=== PATIENT | male | born 1960 | race Caucasian/White ===

== ENCOUNTER 2019-12-04 12:36 | Emergency (ER) | payer OTHER ==
[2019-12-04 12:52] VITALS: BP 151/97; PULSE 88; TEMP 97.8; BMI 25.7
--- NOTE | 2019-12-04 13:05 | PDOC ---
History of Present Illness - General Chief Complaint: Blood Pressure Problem Stated Complaint: HYPERTENSION/HEADACHE Time Seen by Provider: 12/04/19 13:04 History Source: Patient - History of Present Illness Initial Comments: 12/04/19 13:21 Mr. Arias is a 58 y/o man w/hx T1DM, HTN, p/w headache that began this morning. He reports waking up and feeling his normal self, but beginning to feel that his blood sugar was dropping over the course of the morning. He reports checking his blood sugar and after finding it was 54, drinking juice and eating a snack. He checked his blood sugar after eating and noted it to be 110, at which point he administered 22u basiglar. His headache began shortly afterwards, 4/10 temporal, no radiation, no visual changes, nausea, vomiting, weakness, chest pain, shortness of breath noted. He did not take any medication to control the pain prior to arrival. He reports recently starting a new job with significant changes to his daily schedule. He reports eating less than usual, including last night where he reports eating a small amount of soup and nothing else before administering 28u basiglar insulin. He denies any fevers, chills, nausea, vomiting, confusion, weakness, cough. He takes 22u of basiglar in the morning, and 28u basiglar at night, no recent changes to his insulin doses. Past History - Past Medical History Allergies/Adverse Reactions: Allergies Allergy/AdvReac Type Severity Reaction Status Date / Time No Known Allergies Allergy Verified 12/04/19 12:45 COPD: No Diabetes: Yes (IDDM) HTN: Yes - Psycho Social/Smoking Cessation Hx Smoking History: Never smoked Review of Systems - Review of Systems Able to Perform ROS?: Yes Comments:: 12/04/19 22:32 ROS: GENERAL/CONSTITUTIONAL: No fever or chills. No weakness. HEAD, EYES, EARS, NOSE AND THROAT: No change in vision. No ear pain or discharge. No sore throat. CARDIOVASCULAR: No chest pain or shortness of breath RESPIRATORY: No cough, wheezing, or hemoptysis. GASTROINTESTINAL: No nausea, vomiting, diarrhea or constipation. GENITOURINARY: No dysuria, frequency, or change in urination. MUSCULOSKELETAL: No joint or muscle swelling or pain. No neck or back pain. SKIN: No rash NEUROLOGIC: Headache. No vertigo, loss of consciousness, or change in strength/ sensation. ENDOCRINE: No increased thirst. No abnormal weight change HEMATOLOGIC/LYMPHATIC: No anemia, easy bleeding, or history of blood clots. ALLERGIC/IMMUNOLOGIC: No hives or skin allergy. *Physical Exam - Vital Signs Last Vital Signs Temp Pulse Resp BP Pulse Ox 97.8 F 88 18 151/97 99 12/04/19 12:40 12/04/19 12:40 12/04/19 12:40 12/04/19 12:40 12/04/19 12:40 - Physical Exam 12/04/19 22:33 PE: GENERAL: Awake, alert, and fully oriented, in no acute distress HEAD: No signs of trauma, normocephalic, atraumatic EYES: PERRLA, EOMI, sclera anicteric, conjunctiva clear ENT: Auricles normal inspection, hearing grossly normal, nares patent, oropharynx clear without exudates. Moist mucosa NECK: Normal ROM, supple, no lymphadenopathy, JVD, or masses LUNGS: No distress, speaks full sentences, clear to auscultation bilaterally HEART: Regular rate and rhythm, normal S1 and S2, no murmurs, rubs or gallops, peripheral pulses normal and equal bilaterally. ABDOMEN: Soft, nontender, normoactive bowel sounds. No guarding, no rebound. No masses EXTREMITIES : Normal inspection, Normal range of motion, no edema. No clubbing or cyanosis NEUROLOGICAL: Cranial nerves II through XII grossly intact. Normal speech, normal gait, no focal sensorimotor deficits SKIN: Warm, Dry, normal turgor, no rashes or lesions noted ED Treatment Course - LABORATORY CBC & Chemistry Diagram: 12/04/19 13:35 12/04/19 13:35 Medical Decision Making - Medical Decision Making 12/04/19 22:33 58M w/hx TIDM p/w headache, hypoglycemia this morning after recent schedule changes and decreased food intake, without any recent changes to his insulin regimen or recent infection. Ddx includes medication use error, infection, stroke. Plan: CBC CMP EKG CXR BGM CT Head without contrast Acetaminophen 1g for pain control Dispo: Likely admit --- POC glucose - 54. Patient given apple juice, sandwich. --- On reassessment, he reports feeling improved after food intake. Repeat glucose - 165. CBC, CMP - wnl EKG - NSR, no ischemic changes, normal axis CXR - no acute process noted, no focal consolidations CT Head - negative for bleeds, no acute process noted --- On reassessment, he reports feeling well at this time. Repeat glucose - 140. Plan for discharge with close PCP follow up. Discharge - Discharge Information Problems reviewed: Yes Clinical Impression/Diagnosis: Hypoglycemia Condition: Stable Disposition: HOME - Admission No - Follow up/Referral Referrals: Desirae Baig MD [Primary Care Provider] - - Patient Discharge Instructions Patient Printed Discharge Instructions: Type 1 Diabetes, DI for Hypoglycemia Additional Instructions: Usted fue evaluado por dolor de dona y azucar baja. Es posible que mendez nivel de azucar bajo duespues de arlene a mendez insulina sin comer suficiente. Mariam niveles de solomon, y un CT scan de mnedez dona estaban normales. Mendez nivel de azucar mejoro despues de comer y se mantuvo normal dar mendez visita. Por favor ve a mendez doctor de cabezera, es posible que van a querer hacer cambios a mendez dosis de insulina. Regresa a la kassidy de urgencias si empiezas a tener cambios de vision, debilidad, confusion, nauseas, vomitos, o dolor de pecho. Print Language: FRENCH - Post Discharge Activity
[2019-12-04] MEDS ORDERED: KETOROLAC TROMETHAMINE 15 MG/ML VIAL IM ONE (13:24)
--- NOTE | 2019-12-04 13:37 | PDOC ---
Documentation entered by Shana Ramirez SCRIBE, acting as scribe for Kika Moise MD. Kika Moise MD: This documentation has been prepared by the James garcia Nirvannie, SCRIBE, under my direction and personally reviewed by me in its entirety. I confirm that the documentation accurately reflects all work, treatment, procedures, and medical decision making performed by me. Attending Attestation - Resident Resident Name: [email or web address] - ED Attending Attestation I have performed the following: I have examined & evaluated the patient, The case was reviewed & discussed with the resident, I agree w/resident's findings & plan, Exceptions are as noted - HPI HPI: 12/04/19 13:32 The patient is a 58 year old male, with a significant past medical history of htn DM , who presents to the emergency department with 1 day of headache. As per patient, he woke up this morning and shortly after he tested his blood glucose this morning and it was found to be 56 thus, he drank juice. He also notes an associated headache with mild tearing secondary to pain, prompting his arrival to the ED. He denies any recent nausea, vomit, diarrhea or constipation. He denies any recent chest pain or shortness of breath. He denies any recent dysuria, frequency, urgency or hematuria. Allergies: NKDA Primary Care Physician: Dr. Baig 12/04/19 14:10 - Physicial Exam PE: 12/04/19 13:37 awake alert lungs clear bilat heart rrr no mrg abd soft nt nd ext wwp. no edema. no calf no tenderness. nuero alert oriented x 3. mild tearing on exam. - Medical Decision Making 12/04/19 13:37 58 yo 12/04/19 16:[address] head is normal. labs demonstrate normal in glucose . will observe for repeat glucose if drops again edilma admit. Heart Score/ECG Review #1 General ECG Interpretation: Sinus Rhythm, Normal Rate (86), Normal Intervals, No acute ischemic changes
[2019-12-04] MEDS ORDERED: ACETAMINOPHEN 1000 MG/100 ML VIAL (NON FORMULARY) IVPB ONE (13:43)
[2019-12-04 14:01] LABS: BASO % 0.3 % (0-2.0); EOS % 0.2 % (0-4.5); HEMATOCRIT 41.8 % (35.4-49); HEMOGLOBIN 14.2 GM/dL (11.7-16.9); LYMPH % 17.8 % (8-40); MEAN CELL VOLUME 85.4 fl (80-96); MEAN PLT VOLUME 11.1 fl (7.5-11.1); MONO % 5.5 % (3.8-10.2); NEUT % 76.2 % (42.8-82.8); PLATELET COUNT 161 K/MM3 (134-434); RDW 14.3 % (11.9-15.9)
[2019-12-04 14:30] LABS: ALBUMIN 3.8 g/dl (3.4-5.0); ALK PHOS 86 U/L (45-117); ANION GAP 5 MMOL/L (8-16); BILIRUBIN,TOTAL 0.5 mg/dL (0.2-1); BLOOD UREA NITROGEN 13.4 mg/dL (7-18); CALCIUM 9.1 mg/dL (8.5-10.1); CHLORIDE 108 mmol/L (98-107); CO2 27 mmol/L (21-32); CREATININE 0.8 mg/dL (0.55-1.3); GLUCOSE,RANDOM 70 mg/dL (74-106); SGOT/AST 36 U/L (15-37); SGPT/ALT 38 U/L (13-61); SODIUM 140 mmol/L (136-145); TOT PROT 7.4 g/dl (6.4-8.2)
[2019-12-04] MEDS ORDERED: ACETAMINOPHEN INJECTION 100 ML IVPB ONE (14:58)
--- NOTE | 2019-12-05 10:04 | EKG ---
Test Reason : Blood Pressure : / mmHG Vent. Rate : 086 BPM Atrial Rate : 086 BPM P-R Int : 156 ms QRS Dur : 078 ms QT Int : 346 ms P-R-T Axes : 056 063 033 degrees QTc Int : 414 ms NORMAL SINUS RHYTHM POSSIBLE LEFT ATRIAL ENLARGEMENT BORDERLINE ECG NO PREVIOUS ECGS AVAILABLE Confirmed by Shari Christianson ([id number]) on 12/05/2019 10:03:47 AM Referred By: Confirmed By:Shari Christianson
== END 2019-12-04 17:16 | disposition home or self-care (01) ==
LOC: JER 12:36
PROC: 3E033NZ Introduction of Analgesics, Hypnotics, Sedatives into Peripheral Vein, Percutaneous Approach (ICD-10-PCS; principal; 2019-12-04)
DX: E10.649 Type 1 diabetes mellitus with hypoglycemia without coma (principal); Z79.4 Long term (current) use of insulin; R51 Headache; I10 Essential (primary) hypertension
CPT/HCPCS: 36415; 70450-TC; 71045-TC-FY; 80053; 82962; 84484; 85025; 93005; 93010; 96374; 99285-25; J0131